=== PATIENT | male | born 1980 | race Caucasian/White ===

== ENCOUNTER 2020-02-26 21:54 | Observation (INO) ==
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
[2020-02-26] MEDS ORDERED: HYDROcodone/ACETAMINOPHEN 1 EACH TABLET PO ONE (22:16)
[2020-02-26] MEDS ORDERED: HYDROmorphone HCL 1 MG/ML DISP.SYRIN IV ONE ×5 (22:46→23:34)
[2020-02-26] MEDS ORDERED: NORMAL SALINE 1,000 ML IV ONE (23:07)
[2020-02-26 23:13] LABS: Hematocrit 39.4 % (42.0-52.0); Mean Cell Volume 80.4 fl (78-100); Mean Corpuscular Hemoglobin 24.5 pg (27-31); Mean Corpuscular Hgb Conc 30.5 g/dl (32-36); Mean Platelet Volume 11.3 fl (8-11.3); Neutrophil # 11.3 K/mm3 (1.3-6.0); Neutrophil % 82.2 % (42-75.0); Platelet Count 266 K/mm3 (150-450); Red Cell Distribution Width 13.5 % (11.5-14.0); White Blood Count 13.8 K/mm3 (4.0-10.5)
[2020-02-26 23:23] LABS: Albumin * 4.7 gm/dl (3.4-5.0); Anion Gap 14.9 mmol/L (6.8-13.8); BUN/Creatinine Ratio 15.2 (9.0-21.6); Bilirubin, Total 0.5 mg/dL (0.0-1.1); Ca. Corrected For Albumin 8.2 mg/dL (8.4-10.2); Calcium * 9.1 mg/dL (7.9-10.9); Carbon Dioxide 25.1 mmol/L (24-32.6); Total Protein 8.3 gm/dL (6.2-8.2)
[2020-02-26 23:39] LABS: Prothrombin Time (Patient) 10.5 Seconds (9.1-10.7)
[2020-02-26 23:40] LABS: INR 1.06 INR (0.92-1.08); Partial Thrombolplastin Time 24.3 Seconds (24-32)
[2020-02-26] MEDS ORDERED: oxyCODONE HCL/ACETAMINOPHEN 1 TAB TABLET PO ONE (23:48)
[2020-02-26] MEDS ORDERED: NORMAL SALINE 1,000 ML IV PRN (23:54)
[2020-02-26] MEDS ORDERED: ONDANSETRON HCL/PF 2 MG/ML VIAL IV PRN (23:54)
[2020-02-27] MEDS ORDERED: ceFAZolin SODIUM/DEXTROSE,ISO 2 GM/50 ML BAG IV ONE (00:08)
[2020-02-27] MEDS ORDERED: PANTOPRAZOLE SODIUM 40 MG/100 ML PIGGYBACK IV ONE (00:09)
[2020-02-27 00:29] LABS: Urine Bilirubin Negative (NEGATIVE); Urine Ketone Negative (NEGATIVE); Urine Nitrite Negative (NEGATIVE); Urine Protein 15 mg/dL (NEGATIVE); Urine Specific Gravity >=1.030 SP.GR. (1.005-1.030); Urine Urobilinogen Normal (NORMAL); Urine pH 5.5 pH (5.0-7.0)
[2020-02-27 00:36] LABS: Urine Appearance Clear (CLEAR); Urine Bacteria None Seen; Urine Blood 5 /ul (NEGATIVE); Urine Color Yellow; Urine RBC 0-5 /hpf (0-5); Urine WBC None Seen /hpf (0-5)
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
[2020-02-27] MEDS: HYDROmorphone HCL 1 MG/ML DISP.SYRIN IV PRN ×8 (01:22→22:35)
[2020-02-27] MEDS: HYDROcodone/ACETAMINOPHEN 1 EACH TABLET PO PRN ×4 (02:19→22:07)
[2020-02-27] MEDS ORDERED: BISACODYL 5 MG TABLET.DR PO ONE (09:35)
[2020-02-27] MEDS ORDERED: BISACODYL 5 MG TABLET.DR ONE (11:56)
--- NOTE | 2020-02-27 14:47 | PN ---
Subjective - Date and Time Seen Date: 02/27/20 Time: 14:42 - Second visit Subjective Narrative: He is comfortable laying still. He has considerable pain with movement. His vital signs have remained normal. He has not noted any additional injuries Objective - Review of Systems Generalized/Overall Review: Denies: Chills, Fever EENTM: Reports: No Symptoms Reported Respiratory: Reports: Other - Pain with inspiration and movement. Denies: Cough, Shortness of Breath Cardiac: Denies: Palpitations, Syncope Abdominal: Denies: Nausea, Vomiting, Abdominal Pain Genitourinary Symptoms: Reports: No Symptoms Reported Musculoskeletal Complaints: Reports: Other - Pain in the right ribs. Neurological: Reports: No Symptoms Reported Skin: Reports: No Symptoms Reported, Other - The laceration on the right nixon ulder is clean - Vitals Vitals: Last Vital Signs Temp 36.8 C 02/27/20 14:15 Pulse 81 02/27/20 14:15 Resp 18 02/27/20 14:15 BP 133/87 02/27/20 14:15 Pulse Ox 96 02/27/20 14:15 - Abnormal Lab Findings Abnormal Lab Findings: Abnormal Lab Results 02/26/20 02/26/20 02/27/20 Range/Units 23:00 23:00 00:20 WBC 13.8 H (4.0-10.5) K/mm3 Hgb 12.0 L (13.5-18.0) gm/dL Hct 39.4 L (42.0-52.0) % MCH 24.5 L (27-31) pg MCHC 30.5 L (32-36) g/dl Immature Gran % (Auto) 0.60 H (0.001-0.429) % Immature Gran # (Auto) 0.08 H (0.000-0.0310) K/mm3 Neutrophils % 82.2 H (42-75.0) % Lymphocytes % 10.1 L (20-51) % Neutrophils # 11.3 H (1.3-6.0) K/mm3 Lymphocytes # 1.39 L (1.5-3.5) k/mm3 Anion Gap 14.9 H (6.8-13.8) mmol/L Calcium Adj for Albumin 8.2 L (8.4-10.2) mg/dL Total Protein 8.3 H (6.2-8.2) gm/dL Urine Protein 15 H (NEGATIVE) mg/dL Urine Blood 5 H (NEGATIVE) /ul - EKG/Xray Findings XRAY: chest Interpretation: Interp. by me - A.m. chest x-ray showed essential resolution of right pneumothorax Subsequent film shows no change with clamping of the chest tube - Exam Constitutional: Present: Alert, Oriented x3, Cooperative, Well developed, Well nourished, Mild distress ENT Exam: Present: normal ENT inspection Neck: Present: full range of motion, normal inspection Respiratory: Present: other - Decreased respiratory motion due to pain however good air entry. 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 Will encourage ambulation - Problems/Diagnosis (1) Fracture of rib of right side Problem: Acute (2) Pneumothorax, closed, traumatic Problem: Acute Narrative: The right chest tube was removed and an occlusive dressing placed. He tolerated this well. Will leave dressing intact for at least 2 days. Recheck chest x-ray in a.m.
[2020-02-28] MEDS: HYDROmorphone HCL 1 MG/ML DISP.SYRIN IV PRN ×3 (01:49→07:58)
[2020-02-28] MEDS: HYDROcodone/ACETAMINOPHEN 1 EACH TABLET PO PRN ×2 (04:24→15:21)
[2020-02-28] MEDS ORDERED: POLYETHYLENE GLYCOL 3350 17 GM PACKET PO SCH (09:00)
[2020-02-28] MEDS ORDERED: PANTOPRAZOLE SODIUM 40 MG in NORMAL SALINE 100 ML IV ONE (09:00)
[2020-02-28] MEDS: KETOROLAC TROMETHAMINE 30 MG/ML VIAL IV PRN ×2 (09:38→17:17)
--- NOTE | 2020-02-28 16:52 | DS ---
(1) Fracture of rib of right side Problem: Acute (2) Pneumothorax, closed, traumatic Problem: Acute Date of Discharge:: 02/28/20 Hospital Course: The patient had a right chest tube placed in ER with evacuation of the pneumothorax. He was then placed in an observation bed for pain control and monitoring of the pneumothorax. His vital signs remained stable. His SaO2 remained normal on room air. His pain was controlled with IV and eventually p.o. medication. He was able to be out of bed and tolerated a regular diet. No additional injuries were evident. He was given IV Protonix for history of GERD. VTE prophylaxis was accomplished with early ambulation. A Band-Aid was placed on the laceration on the right posterior shoulder. He tolerated a trial of chest tube clamping without reaccumulation of pneumothorax and the tube was removed. Occlusive dressing was placed. He improved steadily and by the afternoon of 02/28/2020 was ready for discharge. He is discharged home with instructions to avoid vigorous activity. He may shower and then change his Band-Aids daily or as needed. A prescription for hydrocodone will be transmitted to [facility] pharmacy in [place] He has phone numbers to call for questions or concerns. He will contact the office tomorrow to arrange a follow-up visit for later this week. Procedures Performed: see notes below - Insertion right chest tube (note included in H&P) Results and Findings: Lab Pending Results 02/26/20 23:00: WBC 13.8 H, RBC 4.90, Hgb 12.0 L, Hct 39.4 L, MCV 80.4, MCH 24.5 L, MCHC 30.5 L, RDW 13.5, Plt Count 266, MPV 11.3, Immature Gran % (Auto) 0.60 H, Immature Gran # (Auto) 0.08 H, Neutrophils % 82.2 H, Lymphocytes % 10.1 L, Monocytes % 6.3, Eosinophils % 0.4, Basophils % 0.4, Nucleated RBC % 0.0, Neutrophils # 11.3 H, Lymphocytes # 1.39 L, Monocytes # 0.9, Eosinophils # 0.1, Absolute Basophils 0.1 02/26/20 23:00: PT 10.5, INR (Anticoag Therapy) 1.06, PTT ([place]) 24.3 02/26/20 23:00: Sodium 140, Plasma Sodium 140, Potassium 4.0, Chloride 104, Carbon Dioxide 25.1, Anion Gap 14.9 H, BUN 17, Creatinine 1.12, Est GFR (Non-Af Amer) 78, BUN/Creatinine Ratio 15.2, Random Glucose 109, Calcium 9.1, Calcium Adj for Albumin 8.2 L, Total Bilirubin 0.5, AST 31, ALT 38, Alkaline Phosphatase 75, Total Protein 8.3 H, Albumin 4.7, Ethyl Alcohol 3.0 02/26/20 23:23: Blood Type O Positive, Antibody Screen Negative 02/27/20 00:20: Urine Color Yellow, Urine Appearance Clear, Urine pH 5.5, Ur Specific [place] >=1.030, Urine Protein 15 H, Urine Glucose (UA) Negative, Urine Ketones Negative, Urine Blood 5 H, Urine Nitrate Negative, Urine Bilirubin Negative, Prot Sulfosalicylic Acd Negative, Urine Urobilinogen Normal, Ur Leukocyte Esterase Negative, Urine RBC 0-5, Urine WBC None seen, Ur Epithelial Cells 0-5, Urine Bacteria None seen, Urine Culture Comments No culture indicated Chest x-ray after chest tube removal reveals no reaccumulation of pneumothorax. He does have rib fractures on the right, ribs 1 through 4 Discharge Location: Home Disposition: Home self-care Condition: Good Discharge Activity: Activity as tolerated, No Lifting Discharge Diet: General/regular food Additional Patient Instructions (free text): He is to call the office tomorrow to arrange a follow-up visit for Friday of this week Complete Home Medications List: Complete Home Medication List: multivitamin 1 tab PO DAILY 09/08/19 sertraline 100 mg tablet 100 mg PO DAILY 09/08/19 diclofenac sodium 50 mg tablet,delayed release 50 mg PO BID #60 tab 01/14/20 Omeprazole 10 mg PO DAILY 02/27/20 HYDROcodone/ACETAMINOPHEN [[place] 5-325] 2 ea PO Q6H PRN #90 tab 02/28/20 Forms: Patient Portal Registration
[2020-02-28 18:07] VITALS: BP 130/65
== END 2020-02-28 17:58 | disposition home or self-care (01) ==
LOC: MS 21:54 → ER 21:54 → MS 02-27 01:42
PROVIDERS: ADMIT Surgery; ATTEND Surgery